=== PATIENT | female | born 1980 | race Two or more races ===

== ENCOUNTER 2024-07-02 05:36 | Emergency (ER) | payer OTHER ==
[~2024-07-02] VITALS: Ht 167.6 cm; Wt 74.8 kg
[2024-07-02] MEDS ORDERED: PROMETHAZINE HCL 50 MG/ML AMPUL IM STA (06:18)
[2024-07-02] MEDS ORDERED: FAMOTIDINE/PF 20 MG/2 ML VIAL IV PUSH STA (06:19)
[2024-07-02] MEDS ORDERED: LACTOBACILLUS ACIDOPHILUS 1 CAP CAP PO STA (06:19)
[2024-07-02] MEDS ORDERED: HYOSCYAMINE SULFATE 0.125 MG TAB.SUBL SL SCH (06:30)
[2024-07-02] MEDS ORDERED: 0.9 % SODIUM CHLORIDE 1,000 ML IV ONE (06:30)
[2024-07-02 07:00] LABS: HEMATOCRIT 43.6 % (36.0-45.00); HEMOGLOBIN 14.7 g/dL (12.0-15.00); MEAN CELL VOLUME 85.6 fL (80.00-100.00); MEAN CORPUSCULAR HEMOGLOBIN 28.7 pg (27.00-32.0); MEAN CORPUSCULAR HGB CONC 33.6 g/dl (32.0-36.0); PLATELET COUNT 326 K/uL (150-450); RED CELL DISTRIBUTION WIDTH 12.6 % (11.5-14.5)
[2024-07-02 07:07] LABS: CALCIUM 8.4 mg/dL (8.5-10.1); CREATININE SERUM 0.86 mg/dL (0.55-1.02); GFR 72.36; POTASSIUM 3.78 mEq/L (3.5-5.1)
[2024-07-02] MEDS ORDERED: METOCLOPRAMIDE HCL 10 MG in DEXTROSE 5 % IN WATER 50 ML IV ONE (08:30)
[2024-07-02] MEDS ORDERED: KETOROLAC TROMETHAMINE 30 MG VIAL IV ONE (08:30)
[2024-07-02] MEDS ORDERED: PEPCID AC20 MG PO (11:31)
[2024-07-02] MEDS ORDERED: ONDANSETRON ODT8 MG PO (11:31)
[2024-07-02] MEDS ORDERED: INTESTINEX680 M1 PO (11:31)
[2024-07-02] MEDS ORDERED: CIPRO500 MG PO (11:31)
== END 2024-07-02 12:32 | disposition home or self-care (01) ==
LOC: ER 05:36
PROVIDERS: General Practice
DX: K52.89 Other specified noninfective gastroenteritis and colitis (principal); Z88.1 Allergy status to other antibiotic agents
CPT/HCPCS: 36415; 96365; 96366; 96372; 99282; J1885; J2550; J2765; J3490; J7030